=== PATIENT | female | born 1960 | race Caucasian/White ===

== ENCOUNTER → 2021-04-04 | Outpatient (CLI) | payer OTHER ==
[2021-04-04 13:45] LABS: BASOPHILS ABSOLUTE AUTO 0.06 K/mm3 (0.00-0.23); BASOPHILS PERCENT AUTO 1 % (0-2); EOSINOPHILS ABSOLUTE AUTO 0.41 K/mm3 (0.00-0.68); EOSINOPHILS PERCENT AUTO 4 % (0-6); Hematocrit 42.1 % (33.0-51.0); Hemoglobin 13.8 g/dL (11.5-16.0); IMMATURE GRAN ABSOLUTE AUTO 0.02 K/mm3 (0.00-0.10); IMMATURE GRAN PERCENT AUTO 0 % (0-1); LYMPHOCYTES ABSOLUTE AUTO 2.47 K/mm3 (0.84-5.20); LYMPHOCYTES PERCENT AUTO 26 % (21-46); MONOCYTES ABSOLUTE AUTO 0.76 K/mm3 (0.16-1.47); MONOCYTES PERCENT AUTO 8 % (4-13); Mean Corpuscular HGB 29.6 pg (26.0-34.0); Mean Corpuscular HGB Conc 32.8 g/dL (31.5-36.5); Mean Corpuscular Volume 90 fL (80-100); Mean Platelet Volume 11.9 fL (9.1-12.4); NEUTROPHILS ABSOLUTE AUTO 5.77 K/mm3 (1.96-9.15); NEUTROPHILS PERCENT AUTO 61 % (41-73); Platelet Count 310 K/mm3 (150-400); RDW Coefficient Variation 13.9 % (11.7-14.2); Red Blood Cell Count 4.66 M/mm3 (3.80-5.20); White Blood Cell Count 9.49 K/mm3 (4.00-11.30)
[2021-04-04 14:36] LABS: Alanine Aminotransfer (ALT/SGP 31 U/L (12-78); Albumin, Blood 3.1 g/dL (3.4-5.0); Albumin/Globulin Ratio 0.7 (0.8-1.8); Alk Phos 68 U/L (50-136); Anion Gap 7 mmol/L (6-16); Aspartate Aminotrans (AST/SGOT 18 U/L (12-37); Bilirubin, Total 0.4 mg/dL (0.1-1.0); Blood Urea Nitrogen 11 mg/dL (8-24); Bun/Creatinine Ratio 17.5 (12.0-20.0); CHOL/HDL RATIO 4.1; CO2, Blood 26 mmol/L (21-32); Calcium, Blood 9.2 mg/dL (8.5-10.1); Chloride, Blood 108 mmol/L (98-108); Cholesterol 164 mg/dL (50-200); Creatinine, Blood 0.63 mg/dL (0.40-1.00); Free Thyroxine 1.68 ng/dL (0.70-1.60); Globulin, Blood 4.3 g/dL (2.2-4.0); Glomerular Filtration Rate >60 (60-); Glucose, Blood 110 mg/dL (70-99); HDL Cholesterol 40 mg/dL (>39); LDL/HDL RATIO 2.5; Low Density Lipoprotein Chol 99 mg/dL (0-110); Potassium, Blood 4.1 mmol/L (3.5-5.5); Sodium, Blood 141 mmol/L (136-145); Thyroid Stimulating Hormone 0.248 uIU/mL (0.360-4.800); Total Protein, Blood 7.4 g/dL (6.4-8.2); Triglycerides 124 mg/dL (30-160); Very Low Density Lipoprot Chol 24 mg/dL (6-32)
== END | disposition home or self-care (01) ==
LOC: LAB 12:16 → LAB SHORT 12:16
PROVIDERS: Physician Assistant
DX: E03.9 Hypothyroidism, unspecified (principal); E78.1 Pure hyperglyceridemia; I10 Essential (primary) hypertension
CPT/HCPCS: 80053; 80061; 84439; 84443; 85025

== ENCOUNTER 2023-12-24 10:44 | Day surgery (SDC) | payer OTHER ==
[~2023-12-24] VITALS: Ht 165.1 cm; Wt 119.5 kg
[~2023-12-24 10:44] MED LIST: Balanced Salt Epinephrine Irrigation Solution 500 mL IR SCH; Lidocaine HCl/Pf 1% 5 ML VIAL ONE; Lidocaine HCl/Pf 1% 5 ML VIAL XX SCH; Moxifloxacin HCL 0.5 MG/0.1 ML 0.4MLSYR LEFTEYE SCH; NS 500 ML IV ONE; PHENYLEPHRINE\\TROPICAMIDE\\TETRACAINE OPHTHALMIC DILATING SOLN LEFTEYE PRN; Povidone-Iodine 450 DROP/30 ML Solution LEFTEYE SCH; Triamcinolone Inj Susp 40 MG / ML 1ML Vial INJ SCH; Triamcinolone Inj Susp 40 MG / ML 1ML Vial ONE
[2023-12-24] MEDS ORDERED: Phenylephrine Frt 10% Opth (ORSC) ONE (10:50)
[2023-12-24] MEDS ORDERED: Synthroid/Levo0.2 MG (11:02)
[2023-12-24] MEDS ORDERED: AMLODIPINE BESY10 MG PO (11:02)
[2023-12-24] MEDS ORDERED: ATEN50 PO (11:02)
[2023-12-24] MEDS ORDERED: LOSA50 PO (11:03)
[2023-12-24] MEDS ORDERED: NS 500 ML IV ONE ×2 (11:08)
--- NOTE | 2023-12-24 11:08 | NUR ---
12/24/23 1108 Sidney Leyva CALL LIGHT WITHIN REACH. TETRACAINE IN AT 1103 IN LEFT EYE AND PLEDGETT IN AT 1104
[2023-12-24] MEDS ORDERED: FentaNYL Citrate 50 MCG/ML 2 ML Injection ONE (11:30)
[2023-12-24] MEDS ORDERED: Midazolam HCl 1MG / ML 2ML Vial ONE (11:30)
[2023-12-24 12:17] VITALS: BP 154/86
--- NOTE | 2023-12-24 12:20 | NUR ---
[facility]24[facility]23 [facility] CASE MANAGER NOTES REDNESS AND SWELLING TO AREA AROUND EYE AND ON CHEEK. PER PATIENT ONLY KNOWN ALLERGY IS TO LISINOPRIL. PATIENT REPORTS SHE SOMETIMES GETS RED CHEEKS SOMETIMES AT HOME. 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 SHE STATES SHE FEELS LIKE SHE "HAS SOMETHING IN MY EYE, BUT IT IS NOT PAINFUL". DENIES SHORTNESS OF BREATH, DENIES ITCHINESS TO AREA AROUND EYE, BUT THAT IT "FEELS ITCHY IN THE EYE ITSELF".
== END 2023-12-24 12:45 | disposition home or self-care (01) ==
LOC: ORSCSDS 10:44
PROVIDERS: Ophthalmology
PROC: 08RK3JZ Replacement of Left Lens with Synthetic Substitute, Percutaneous Approach (ICD-10-PCS; principal; 2023-12-24 12:00)
DX: H25.812 Combined forms of age-related cataract, left eye (principal); H52.202 Unspecified astigmatism, left eye; I10 Essential (primary) hypertension; E03.9 Hypothyroidism, unspecified; E66.01 Morbid (severe) obesity due to excess calories; Z68.41 Body mass index [BMI] 40.0-44.9, adult; Z79.899 Other long term (current) drug therapy
CPT/HCPCS: J2001; J2250; J3010; J3301; J7040; V2632

== ENCOUNTER 2023-12-31 08:05 | Day surgery (SDC) | payer OTHER ==
[~2023-12-31] VITALS: Ht 165.1 cm; Wt 118.7 kg
[~2023-12-31 08:05] MED LIST changes: +AMLODIPINE BESY10 MG PO; +ATEN50 PO; +LOSA50 PO; -Moxifloxacin HCL 0.5 MG/0.1 ML 0.4MLSYR LEFTEYE SCH; +Moxifloxacin HCL 0.5 MG/0.1 ML 0.4MLSYR RIGHTEYE SCH; -PHENYLEPHRINE\\TROPICAMIDE\\TETRACAINE OPHTHALMIC DILATING SOLN LEFTEYE PRN; +PHENYLEPHRINE\\TROPICAMIDE\\TETRACAINE OPHTHALMIC DILATING SOLN RIGHTEYE PRN; -Povidone-Iodine 450 DROP/30 ML Solution LEFTEYE SCH; +Povidone-Iodine 450 DROP/30 ML Solution RIGHTEYE SCH; +Synthroid/Levo0.2 MG
[2023-12-31] MEDS ORDERED: NS 500 ML IV ONE ×2 (08:49→09:50)
[2023-12-31] MEDS ORDERED: Midazolam HCl 1MG / ML 2ML Vial ONE ×2 (09:41→09:49)
[2023-12-31] MEDS ORDERED: FentaNYL Citrate 50 MCG/ML 2 ML Injection ONE (09:42)
[2023-12-31 10:11] VITALS: BP 125/76
--- NOTE | 2023-12-31 10:33 | NUR ---
12/31/23 1033 PHUONG LOPEZ WAITING FOR DTR TO PU HER UP
== END 2023-12-31 10:30 | disposition home or self-care (01) ==
LOC: ORSCSDS 08:05
PROVIDERS: Ophthalmology
PROC: 08RJ3JZ Replacement of Right Lens with Synthetic Substitute, Percutaneous Approach (ICD-10-PCS; principal; 2023-12-31 09:30)
DX: H25.811 Combined forms of age-related cataract, right eye (principal); H52.201 Unspecified astigmatism, right eye; Z96.1 Presence of intraocular lens; I10 Essential (primary) hypertension; E66.01 Morbid (severe) obesity due to excess calories; Z68.41 Body mass index [BMI] 40.0-44.9, adult; Z79.899 Other long term (current) drug therapy
CPT/HCPCS: J2001; J2250; J3010; J3301; J7040; V2632